=== PATIENT | male | born 1940 | race Caucasian/White ===

== ENCOUNTER 2019-04-11 08:27 | Inpatient (IN) ==
[2019-04-11] MEDS ORDERED: SODIUM CHLORIDE 0.9% 1,000 ML IV STA (09:10)
[2019-04-11] MEDS ORDERED: ONDANSETRON 4 MG/2 ML VIAL IV STA (09:10)
[2019-04-11 09:36] LABS: Basophils % 0.2 % (0.0-0.8); Eosinophils # 0.1 10*3/uL (0.0-0.87); Eosinophils % 0.5 % (0.00-10.9); Hematocrit 33.8 VOL% (42.0-52.0); Hemoglobin 10.3 GM/DL (14.0-18.0); Immature Granulocytes % 1.6 %; Lymphocytes # 0.3 10*3/uL (1.4-4.0); Lymphocytes % 2.1 % (21.2-54.2); Mean Corpuscular HGB Conc 30.5 GM/DL (32-36); Mean Corpuscular Volume 77.5 FL (87-102); Mean Platelet Volume 9.2 FL (9.6-12.0); Monocytes % 9.1 % (1.7-12.7); NRBC # 0.02 10*3/uL; Neutrophils % 86.5 % (38.7-73.9); Platelet Count 538 T/CUMM (130-400); Red Blood Count 4.36 MC/CUMM (3.8-5.5); Red Cell Distribution Width 17.5 % (9.3-17.3); White Blood Count 12.5 T/CUMM (4-12)
[2019-04-11 10:00] LABS: Alanine Aminotransferase 14 U/L (16-61); Albumin 2.7 G/DL (3.4-5.0); Alkaline Phosphatase 157 U/L (45-117); Aspartate Amino Transferase 15 U/L (0-37); Bilirubin,Total < 0.39 MG/DL (0.2-1.0); Blood Urea Nitrogen 30 MG/DL (7-18); Estimated Glom Filtration Rate 35 ML/MIN; Glucose 129 MG/DL (74-106); Osmolality,Calculated 273.4 MOS/KG (273-304); Total Protein 7.2 G/DL (6.4-8.3)
[2019-04-11 10:08] LABS: Anisocytosis 1+; Hypochromasia 1+; Lymphocytes 1 % (20-55); Microcytosis 1+; Nucleated Red Blood Cells 1 (0-5); Segmented Neutrophils 94 % (50-85); Total Cells Counted 100
[2019-04-11 10:09] LABS: Ovalocytes Slight
[2019-04-11] MEDS ORDERED: HYDROmorphone 2 MG/1 ML VIAL IV STA (10:38)
[2019-04-11 10:52] LABS: Apearance,Urine CLEAR (Clear); Bilirubin,Urine Negative (Negative); Blood, Urine Negative (Negative); Glucose,Urine (UA) Negative (Negative); Ketones,Urine Negative (Negative); Mucus,Urine Occasional /LPF (Occasional); Nitrite,Urine Negative (Negative); Protein,Urine Negative; RBC,Urine 8 /HPF (0-4); Urine Color Yellow (Yellow); Urine Specific Gravity 1.049 (1.001-1.035); Urine Urobilinogen < 2.0 EU/DL (0.2-1.0); WBC,Urine <1 /HPF (0-6)
[2019-04-11] MEDS ORDERED: MORPHINE 4 MG/1 ML VIAL IV PRN (11:13)
[2019-04-11] MEDS ORDERED: SODIUM CHLORIDE 0.9% 1,000 ML IV SCH (11:30)
[2019-04-11] MEDS: SODIUM CHLORIDE 0.9% 1,000 ML IV SCH ×2 (16:23→23:33)
[2019-04-11] MEDS: MORPHINE 4 MG/1 ML VIAL IV PRN (23:28)
[2019-04-12 04:57] LABS: Basophils % 0.5 % (0.0-0.8); Eosinophils # 0.1 10*3/uL (0.0-0.87); Hematocrit 30.9 VOL% (42.0-52.0); Hemoglobin 9.1 GM/DL (14.0-18.0); Immature Granulocytes % 1.1 %; Immature Granulocytes Absolute 0.09 #; Lymphocytes # 0.2 10*3/uL (1.4-4.0); Lymphocytes % 2.9 % (21.2-54.2); Mean Corpuscular HGB Conc 29.4 GM/DL (32-36); Mean Corpuscular Volume 79.8 FL (87-102); Mean Platelet Volume 9.2 FL (9.6-12.0); Monocytes % 10.1 % (1.7-12.7); Neutrophils % 84.4 % (38.7-73.9); Platelet Count 459 T/CUMM (130-400); Red Blood Count 3.87 MC/CUMM (3.8-5.5); Red Cell Distribution Width 17.8 % (9.3-17.3); White Blood Count 8.3 T/CUMM (4-12)
[2019-04-12 05:23] LABS: Calcium 8.9 MG/DL (8.5-10.1); Osmolality,Calculated 279.5 MOS/KG (273-304)
[2019-04-12 05:25] LABS: Eosinophils 1 % (0-10); Hypochromasia 1+; Lymphocytes 4 % (20-55); Platelet Estimate Adequate; Segmented Neutrophils 87 % (50-85); Total Cells Counted 100
[2019-04-12 05:26] LABS: Microcytosis 1+
[2019-04-12] MEDS: SODIUM CHLORIDE 0.9% 1,000 ML IV SCH ×2 (06:10→10:40)
[2019-04-12] MEDS ORDERED: METOPROLOL TARTRATE 5 MG/5 ML VIAL IV SCH ×2 (09:32→12:00)
[2019-04-12] MEDS ORDERED: POTASSIUM CHLORIDE RIDER 20 MEQ in PREMIX 1 EACH IV PRN (11:30)
[2019-04-12] MEDS: dilTIAZem Drip 125 MG/125 ML PREMIX IV SCH (11:43)
[2019-04-12] MEDS: POTASSIUM CHLORIDE RIDER 10 MEQ in PREMIX 1 EACH IV PRN (11:44)
[2019-04-12] MEDS: MORPHINE 4 MG/1 ML VIAL IV PRN (17:43)
[2019-04-13 04:12] LABS: Basophils # 0.1 10*3/uL (0.0-0.2); Basophils % 0.5 % (0.0-0.8); Eosinophils # 0.2 10*3/uL (0.0-0.87); Eosinophils % 2.5 % (0.00-10.9); Hematocrit 31.4 VOL% (42.0-52.0); Immature Granulocytes % 1.2 %; Immature Granulocytes Absolute 0.11 #; Lymphocytes # 0.2 10*3/uL (1.4-4.0); Lymphocytes % 2.4 % (21.2-54.2); Mean Corpuscular HGB Conc 28.7 GM/DL (32-36); Mean Corpuscular Volume 82.4 FL (87-102); Mean Platelet Volume 9.1 FL (9.6-12.0); Monocytes % 7.3 % (1.7-12.7); Neutrophils % 86.1 % (38.7-73.9); Platelet Count 431 T/CUMM (130-400); Red Blood Count 3.81 MC/CUMM (3.8-5.5); Red Cell Distribution Width 17.6 % (9.3-17.3); White Blood Count 9.3 T/CUMM (4-12)
[2019-04-13] MEDS: MORPHINE 4 MG/1 ML VIAL IV PRN ×2 (04:40→21:00)
[2019-04-13 04:42] LABS: Eosinophils 4 % (0-10); Hypochromasia 1+; Lymphocytes 1 % (20-55); Microcytosis 1+; Ovalocytes Slight; Platelet Estimate Adequate; Segmented Neutrophils 90 % (50-85); Total Cells Counted 100
[2019-04-13 04:49] LABS: Calcium 8.4 MG/DL (8.5-10.1); Osmolality,Calculated 280.5 MOS/KG (273-304)
[2019-04-13] MEDS: SODIUM CHLORIDE 0.9% 1,000 ML IV SCH ×3 (10:19→21:00)
[2019-04-13] MEDS: ACETAMINOPHEN 325 MG TABLET PO PRN (10:22)
[2019-04-13] MEDS ORDERED: DILTIAZEM 60 MG TABLET PO SCH (11:21)
[2019-04-13] MEDS ORDERED: DIGOXIN 0.125 MG TABLET PO SCH (11:30)
[2019-04-13] MEDS: DILTIAZEM 60 MG TABLET PO SCH ×3 (11:44→21:57)
[2019-04-13] MEDS: dilTIAZem Drip 125 MG/125 ML PREMIX IV SCH (12:02)
[2019-04-13] MEDS: DIGOXIN 0.125 MG TABLET PO SCH (12:02)
[2019-04-13] MEDS: ONDANSETRON 4 MG/2 ML VIAL IV PRN ×2 (16:33→21:00)
[2019-04-14] MEDS: ONDANSETRON 4 MG/2 ML VIAL IV PRN
[2019-04-14] MEDS: MORPHINE 4 MG/1 ML VIAL IV PRN ×2 (03:30)
[2019-04-14] MEDS: PROMETHAZINE INJ 12.5 MG in SODIUM CHLORIDE 0.9% 50 ML IV PRN (03:30)
[2019-04-14 05:51] LABS: Calcium 8.2 MG/DL (8.5-10.1)
[2019-04-14 05:58] LABS: Basophils # 0.1 10*3/uL (0.0-0.2); Basophils % 0.4 % (0.0-0.8); Eosinophils # 0.2 10*3/uL (0.0-0.87); Eosinophils % 2.1 % (0.00-10.9); Hematocrit 33.6 VOL% (42.0-52.0); Hemoglobin 9.9 GM/DL (14.0-18.0); Immature Granulocytes % 1.3 %; Immature Granulocytes Absolute 0.15 #; Lymphocytes # 0.2 10*3/uL (1.4-4.0); Lymphocytes % 1.7 % (21.2-54.2); Mean Corpuscular HGB Conc 29.5 GM/DL (32-36); Mean Corpuscular Volume 79.6 FL (87-102); Mean Platelet Volume 9.3 FL (9.6-12.0); Monocytes % 7.6 % (1.7-12.7); Neutrophils % 86.9 % (38.7-73.9); Platelet Count 469 T/CUMM (130-400); Red Blood Count 4.22 MC/CUMM (3.8-5.5); Red Cell Distribution Width 17.4 % (9.3-17.3); White Blood Count 11.4 T/CUMM (4-12)
[2019-04-14 06:01] LABS: Eosinophils 2 % (0-10); Lymphocytes 3 % (20-55); Platelet Estimate Increased; Segmented Neutrophils 91 % (50-85); Total Cells Counted 100
[2019-04-14] MEDS: ASPIRIN CHEW 81 MG TABLET PO SCH (11:19)
[2019-04-14] MEDS: DILTIAZEM 60 MG TABLET PO SCH ×3 (11:19→21:36)
[2019-04-14] MEDS: DIGOXIN 0.125 MG TABLET PO SCH (14:09)
[2019-04-14] MEDS: POTASSIUM CHLORIDE RIDER 10 MEQ in PREMIX 1 EACH IV PRN (14:10)
[2019-04-14] MEDS: SODIUM CHLORIDE 0.9% 1,000 ML IV SCH (16:38)
[2019-04-14] MEDS: AZITHROMYCIN INJ 250 MG in SODIUM CHLORIDE 0.9% 250 ML IV SCH (21:37)
[2019-04-14] MEDS: ACETAMINOPHEN 325 MG TABLET PO PRN (23:21)
[2019-04-15] MEDS: SODIUM CHLORIDE 0.9% 1,000 ML IV SCH ×3 (03:37→20:14)
[2019-04-15 05:59] LABS: Basophils % 0.4 % (0.0-0.8); Eosinophils # 0.2 10*3/uL (0.0-0.87); Eosinophils % 1.6 % (0.00-10.9); Hematocrit 31.5 VOL% (42.0-52.0); Hemoglobin 9.4 GM/DL (14.0-18.0); Immature Granulocytes % 1.3 %; Immature Granulocytes Absolute 0.14 #; Lymphocytes # 0.3 10*3/uL (1.4-4.0); Lymphocytes % 2.4 % (21.2-54.2); Mean Corpuscular HGB Conc 29.8 GM/DL (32-36); Mean Corpuscular Volume 78.2 FL (87-102); Mean Platelet Volume 9.5 FL (9.6-12.0); Monocytes % 8.1 % (1.7-12.7); Neutrophils % 86.2 % (38.7-73.9); Platelet Count 459 T/CUMM (130-400); Red Blood Count 4.03 MC/CUMM (3.8-5.5); Red Cell Distribution Width 17.7 % (9.3-17.3); White Blood Count 10.9 T/CUMM (4-12)
[2019-04-15 06:40] LABS: Calcium 8.3 MG/DL (8.5-10.1); Osmolality,Calculated 280.8 MOS/KG (273-304)
[2019-04-15 06:44] LABS: Hypochromasia 1+; Lymphocytes 3 % (20-55); Segmented Neutrophils 92 % (50-85); Total Cells Counted 100
[2019-04-15 06:45] LABS: Microcytosis 1+; Platelet Estimate Increased
[2019-04-15] MEDS: ONDANSETRON 4 MG/2 ML VIAL IV PRN ×2 (06:48→15:01)
[2019-04-15] MEDS: DILTIAZEM 60 MG TABLET PO SCH ×3 (08:49→22:44)
[2019-04-15] MEDS: ACETAMINOPHEN 325 MG TABLET PO PRN (08:50)
[2019-04-15] MEDS: ASPIRIN CHEW 81 MG TABLET PO SCH (08:50)
[2019-04-15] MEDS: PROMETHAZINE INJ 12.5 MG in SODIUM CHLORIDE 0.9% 50 ML IV PRN ×2 (08:51→20:13)
[2019-04-15] MEDS: DIGOXIN 0.125 MG TABLET PO SCH (12:56)
[2019-04-15] MEDS: PROCHLORPERAZINE 10 MG TABLET PO PRN ×2 (12:56→21:19)
[2019-04-15] MEDS ORDERED: ceFAZolin 1,000 MG in SYRINGE 1 EACH IV ONE (14:47)
[2019-04-15] MEDS: AZITHROMYCIN INJ 250 MG in SODIUM CHLORIDE 0.9% 250 ML IV SCH (21:19)
[2019-04-16] MEDS: PROMETHAZINE INJ 12.5 MG in SODIUM CHLORIDE 0.9% 50 ML IV PRN (01:29)
[2019-04-16] MEDS: PROCHLORPERAZINE 10 MG TABLET PO PRN (02:54)
[2019-04-16 07:13] LABS: Basophils % 0.2 % (0.0-0.8); Hematocrit 30.3 VOL% (42.0-52.0); Hemoglobin 9.3 GM/DL (14.0-18.0); Immature Granulocytes Absolute 0.13 #; Lymphocytes # 0.2 10*3/uL (1.4-4.0); Lymphocytes % 1.3 % (21.2-54.2); Mean Corpuscular HGB Conc 30.7 GM/DL (32-36); Mean Corpuscular Volume 77.1 FL (87-102); Mean Platelet Volume 9.7 FL (9.6-12.0); Monocytes % 5.2 % (1.7-12.7); Neutrophils % 92.3 % (38.7-73.9); Platelet Count 471 T/CUMM (130-400); Red Blood Count 3.93 MC/CUMM (3.8-5.5); Red Cell Distribution Width 17.4 % (9.3-17.3); White Blood Count 13.4 T/CUMM (4-12)
[2019-04-16 07:40] LABS: Hypochromasia 2+; Lymphocytes 3 % (20-55); Microcytosis 1+; Platelet Estimate Increased; Segmented Neutrophils 94 % (50-85); Total Cells Counted 100
[2019-04-16 07:41] LABS: Calcium 8.3 MG/DL (8.5-10.1); Osmolality,Calculated 276.1 MOS/KG (273-304)
[2019-04-16] MEDS ORDERED: ceFAZolin 1,000 MG in SYRINGE 1 EACH IV ONE (08:30)
[2019-04-16] MEDS: DILTIAZEM 60 MG TABLET PO SCH ×3 (08:30→21:00)
[2019-04-16] MEDS: ASPIRIN CHEW 81 MG TABLET PO SCH (08:31)
[2019-04-16] MEDS ORDERED: LIDOCAINE 2% 5 ML VIAL ONE (08:43)
[2019-04-16] MEDS ORDERED: propofoL 200 MG/20 ML VIAL IV ONE (08:43)
[2019-04-16] MEDS ORDERED: ETOMIDATE 40 MG/20 ML VIAL IV ONE (08:44)
[2019-04-16] MEDS ORDERED: MIDAZOLAM 2 MG/2 ML VIAL ONE (08:44)
[2019-04-16 08:53] LABS: INR 1.1; PT Patient Result 12.2 SECS (9.6-12.2)
[2019-04-16] MEDS ORDERED: flumazeniL 0.5 MG/5 ML VIAL IV ONE (09:45)
[2019-04-16] MEDS ORDERED: ALBUTEROL/IPRATROPIUM 3 ML NEB RESP TX ONE (10:01)
[2019-04-16] MEDS ORDERED: SUCCINYLCHOLINE 200 MG/10 ML VIAL ONE (10:02)
[2019-04-16] MEDS: ALBUTEROL/IPRATROPIUM 3 ML NEB RESP TX SCH ×4 (11:20→23:38)
[2019-04-16] MEDS ORDERED: FUROSEMIDE 40 MG/4 ML VIAL IM ONE (11:29)
[2019-04-16] MEDS ORDERED: methylPREDNISolone SOD SUC 125 MG/2 ML VIAL IV ONE (11:31)
[2019-04-16] MEDS ORDERED: FUROSEMIDE 40 MG/4 ML VIAL IV ONE (11:34)
[2019-04-16] MEDS ORDERED: FUROSEMIDE 40 MG/4 ML VIAL ONE (11:36)
[2019-04-16] MEDS ORDERED: ALBUTEROL NEB SOLN 5 MG/ML 20 ML/BOTTLE CONT NEB ONE (11:50)
[2019-04-16] MEDS ORDERED: ALBUTEROL 2.5 MG/3 ML NEB RESP TX ONE (11:51)
[2019-04-16] MEDS: SODIUM CHLORIDE 0.9% 1,000 ML IV SCH ×2 (12:01→17:36)
[2019-04-16] MEDS: PIPERACILLIN/TAZOBACTAM 3,375 MG in SODIUM CHLORIDE 0.9% 100 ML IV SCH ×2 (12:02→19:39)
[2019-04-16 12:31] LABS: ABG Base Excess -2.6 MMOL/L (-2.5-2.5); ABG HCO3 22.8 MMOL/L (20-26); ABG Oxygen Saturation 86.3 % (95-100); ABG PCO2 41.7 MM HG (35-48); ABG PH 7.355 (7.35-7.45); ABG PO2 58.1 MM HG (80-95); Allen Test Positive; Pt O2 Delivery Device Other
[2019-04-16] MEDS: PANTOPRAZOLE 40 MG VIAL IV SCH ×3 (12:46→20:13)
[2019-04-16] MEDS: DIGOXIN 0.125 MG TABLET PO SCH (12:47)
[2019-04-16] MEDS: POTASSIUM CHLORIDE RIDER 10 MEQ in PREMIX 1 EACH IV PRN ×2 (17:20→18:17)
[2019-04-16] MEDS: ACETAMINOPHEN 325 MG TABLET PO PRN ×2 (18:04→21:36)
[2019-04-16] MEDS: methylPREDNISolone SOD SUC 40 MG/1 ML VIAL IV SCH (19:40)
[2019-04-16 20:59] LABS: ABG Base Excess -0.6 MMOL/L (-2.5-2.5); ABG HCO3 23.9 MMOL/L (20-26); ABG Oxygen Saturation 95.1 % (95-100); ABG PH 7.422 (7.35-7.45); ABG PO2 75.3 MM HG (80-95); ABG TCO2 21.5 MMOL/L (23-27); Allen Test Positive; Pt O2 Delivery Device Other
[2019-04-17] MEDS: AZITHROMYCIN INJ 250 MG in SODIUM CHLORIDE 0.9% 250 ML IV SCH (00:23)
[2019-04-17] MEDS: POTASSIUM CHLORIDE RIDER 10 MEQ in PREMIX 1 EACH IV PRN (03:25)
[2019-04-17] MEDS: ALBUTEROL/IPRATROPIUM 3 ML NEB RESP TX SCH ×6 (03:38→23:26)
[2019-04-17 04:17] LABS: Basophils % 0.1 % (0.0-0.8); Hematocrit 30.1 VOL% (42.0-52.0); Hemoglobin 8.8 GM/DL (14.0-18.0); Immature Granulocytes % 0.6 %; Immature Granulocytes Absolute 0.12 #; Lymphocytes # 0.1 10*3/uL (1.4-4.0); Lymphocytes % 0.3 % (21.2-54.2); Mean Corpuscular HGB Conc 29.2 GM/DL (32-36); Mean Corpuscular Volume 78.8 FL (87-102); Mean Platelet Volume 9.8 FL (9.6-12.0); Monocytes % 1.5 % (1.7-12.7); Neutrophils % 97.5 % (38.7-73.9); Platelet Count 427 T/CUMM (130-400); Red Blood Count 3.82 MC/CUMM (3.8-5.5); Red Cell Distribution Width 17.6 % (9.3-17.3); White Blood Count 19.7 T/CUMM (4-12)
[2019-04-17 04:39] LABS: Lymphocytes 1 % (20-55); Platelet Estimate Adequate; Segmented Neutrophils 97 % (50-85); Total Cells Counted 100
[2019-04-17 04:40] LABS: Hypochromasia 1+; Microcytosis 1+; Ovalocytes Slight
[2019-04-17] MEDS: methylPREDNISolone SOD SUC 40 MG/1 ML VIAL IV SCH ×2 (04:45→17:44)
[2019-04-17 04:51] LABS: Calcium 8.5 MG/DL (8.5-10.1)
[2019-04-17] MEDS: PIPERACILLIN/TAZOBACTAM 3,375 MG in SODIUM CHLORIDE 0.9% 100 ML IV SCH ×3 (04:56→20:57)
[2019-04-17] MEDS: SODIUM CHLORIDE 0.9% 1,000 ML IV SCH (06:09)
[2019-04-17] MEDS: DILTIAZEM 60 MG TABLET PO SCH (08:23)
[2019-04-17] MEDS: PANTOPRAZOLE 40 MG VIAL IV SCH ×2 (08:24→20:56)
[2019-04-17] MEDS: ASPIRIN CHEW 81 MG TABLET PO SCH (08:24)
[2019-04-17] MEDS ORDERED: DILTIAZEM 60 MG TABLET PO SCH (09:00)
[2019-04-17] MEDS: ASCORBIC ACID 500 MG TABLET PO SCH ×2 (09:43→20:57)
[2019-04-17] MEDS ORDERED: FUROSEMIDE 40 MG/4 ML VIAL IV SCH (11:00)
[2019-04-17] MEDS ORDERED: dilTIAZem Drip 125 MG/125 ML PREMIX IV SCH (12:00)
[2019-04-17] MEDS: DIGOXIN 0.125 MG TABLET PO SCH (12:49)
[2019-04-17] MEDS: metOLazone 5 MG TABLET PO SCH (13:25)
[2019-04-17] MEDS: ACETAMINOPHEN 325 MG TABLET PO PRN ×2 (13:34→21:28)
[2019-04-17 14:31] LABS: ABG Base Excess -0.1 MMOL/L (-2.5-2.5); ABG HCO3 24.4 MMOL/L (20-26); ABG Oxygen Saturation 98.2 % (95-100); ABG PCO2 36.5 MM HG (35-48); ABG PH 7.426 (7.35-7.45); ABG TCO2 22.1 MMOL/L (23-27); Allen Test Positive; Pt O2 Delivery Device CPAP
[2019-04-17] MEDS ORDERED: LIDOCAINE 2% TOP JELLY 20 ML VIAL INTRAURETH ONE ×2 (17:11→17:30)
[2019-04-17] MEDS ORDERED: MORPHINE 4 MG/1 ML VIAL ONE (17:13)
[2019-04-17] MEDS ORDERED: MIDAZOLAM 2 MG/2 ML VIAL ONE (17:14)
[2019-04-17] MEDS ORDERED: MORPHINE 4 MG/1 ML VIAL IV ONE (17:43)
[2019-04-17] MEDS ORDERED: MIDAZOLAM 2 MG/2 ML VIAL IV ONE (17:44)
[2019-04-17] MEDS: FUROSEMIDE INJ 100 MG in SODIUM CHLORIDE 0.9% 90 ML IV SCH (18:28)
[2019-04-17] MEDS: AZITHROMYCIN INJ 250 MG in SODIUM CHLORIDE 0.9% 150 ML IV SCH (20:57)
[2019-04-18] MEDS: FUROSEMIDE INJ 100 MG in SODIUM CHLORIDE 0.9% 90 ML IV SCH ×2 (00:03→02:31)
[2019-04-18] MEDS: ALBUTEROL/IPRATROPIUM 3 ML NEB RESP TX SCH ×5 (04:25→19:00)
[2019-04-18 04:40] LABS: Basophils % 0.1 % (0.0-0.8); Hematocrit 26.9 VOL% (42.0-52.0); Hemoglobin 8.2 GM/DL (14.0-18.0); Immature Granulocytes % 0.8 %; Immature Granulocytes Absolute 0.11 #; Lymphocytes # 0.1 10*3/uL (1.4-4.0); Lymphocytes % 0.5 % (21.2-54.2); Mean Corpuscular HGB Conc 30.5 GM/DL (32-36); Mean Corpuscular Volume 76.4 FL (87-102); Mean Platelet Volume 10.3 FL (9.6-12.0); Monocytes % 3.3 % (1.7-12.7); Neutrophils % 95.3 % (38.7-73.9); Platelet Count 359 T/CUMM (130-400); Red Blood Count 3.52 MC/CUMM (3.8-5.5); White Blood Count 13.4 T/CUMM (4-12)
[2019-04-18 05:06] LABS: Calcium 8.6 MG/DL (8.5-10.1); Osmolality,Calculated 277.4 MOS/KG (273-304)
[2019-04-18 05:14] LABS: Hypochromasia 1+; Microcytosis 1+; Platelet Estimate Adequate; Segmented Neutrophils 96 % (50-85); Total Cells Counted 100
[2019-04-18] MEDS: POTASSIUM CHLORIDE RIDER 10 MEQ in PREMIX 1 EACH IV PRN ×2 (05:20→08:38)
[2019-04-18] MEDS: PIPERACILLIN/TAZOBACTAM 3,375 MG in SODIUM CHLORIDE 0.9% 100 ML IV SCH ×3 (05:20→23:26)
[2019-04-18] MEDS: methylPREDNISolone SOD SUC 40 MG/1 ML VIAL IV SCH ×2 (05:20→18:12)
[2019-04-18] MEDS: PANTOPRAZOLE 40 MG VIAL IV SCH ×2 (08:22→22:09)
[2019-04-18] MEDS: ACETAMINOPHEN 325 MG TABLET PO PRN ×2 (08:22→12:56)
[2019-04-18] MEDS: metOLazone 5 MG TABLET PO SCH (08:23)
[2019-04-18] MEDS: ASCORBIC ACID 500 MG TABLET PO SCH ×2 (08:23→22:09)
[2019-04-18] MEDS: ASPIRIN CHEW 81 MG TABLET PO SCH (08:23)
[2019-04-18] MEDS ORDERED: DILTIAZEM 60 MG TABLET PO SCH (09:00)
[2019-04-18] MEDS ORDERED: POTASSIUM CHLORIDE 20 MEQ TABLET PO ONE (10:25)
[2019-04-18 10:50] LABS: % Iron Saturation 7.8 % (18-50); Ferritin 114.4 ng/ml (26-388)
[2019-04-18 11:40] LABS: Folate 13.6 NG/ML (5.4-24.0); Vitamin B12 1055 PG/ML (211-911)
[2019-04-18 12:12] LABS: Basophils % 0.1 % (0.0-0.8); Hematocrit 29.6 VOL% (42.0-52.0); Immature Granulocytes % 1.1 %; Immature Granulocytes Absolute 0.25 #; Lymphocytes % 0.2 % (21.2-54.2); Mean Corpuscular HGB Conc 30.4 GM/DL (32-36); Mean Corpuscular Volume 76.5 FL (87-102); Monocytes % 2.8 % (1.7-12.7); NRBC # 0.02 10*3/uL; Neutrophils % 95.8 % (38.7-73.9); Platelet Count 510 T/CUMM (130-400); Red Blood Count 3.87 MC/CUMM (3.8-5.5); Red Cell Distribution Width 17.9 % (9.3-17.3); White Blood Count 22.5 T/CUMM (4-12)
[2019-04-18] MEDS: DIGOXIN 0.125 MG TABLET PO SCH (12:55)
[2019-04-18] MEDS ORDERED: ALPRAZolam 0.25 MG TABLET PO PRN (15:46)
[2019-04-18 15:56] LABS: Anisocytosis 1+; Microcytosis 1+; Segmented Neutrophils 98 % (50-85); Total Cells Counted 100
[2019-04-18 15:57] LABS: Hypochromasia Slight; Platelet Estimate Increased
[2019-04-18] MEDS: DILTIAZEM 60 MG TABLET PO SCH ×2 (16:47→22:09)
[2019-04-18] MEDS: FUROSEMIDE 40 MG/4 ML VIAL IV SCH ×2 (18:12→23:32)
[2019-04-18 21:06] LABS: Sedimentation Rate-Westergren 80 MM/HR (0-20)
[2019-04-18] MEDS: ALPRAZolam 0.25 MG TABLET PO PRN (22:09)
[2019-04-18] MEDS: AZITHROMYCIN INJ 250 MG in SODIUM CHLORIDE 0.9% 150 ML IV SCH (22:10)
[2019-04-19] MEDS: ALBUTEROL/IPRATROPIUM 3 ML NEB RESP TX SCH ×7 (00:43→23:57)
[2019-04-19] MEDS: ACETAMINOPHEN 325 MG TABLET PO PRN ×2 (02:49→16:25)
[2019-04-19] MEDS: methylPREDNISolone SOD SUC 40 MG/1 ML VIAL IV SCH ×2 (04:44→16:19)
[2019-04-19 05:20] LABS: Hematocrit 25.6 VOL% (42.0-52.0); Immature Granulocytes % 0.6 %; Immature Granulocytes Absolute 0.06 #; Lymphocytes # 0.1 10*3/uL (1.4-4.0); Lymphocytes % 0.5 % (21.2-54.2); Mean Corpuscular HGB Conc 31.3 GM/DL (32-36); Mean Corpuscular Volume 75.5 FL (87-102); Mean Platelet Volume 10.4 FL (9.6-12.0); Monocytes % 3.5 % (1.7-12.7); NRBC # 0.02 10*3/uL; Neutrophils % 95.4 % (38.7-73.9); Platelet Count 338 T/CUMM (130-400); Red Blood Count 3.39 MC/CUMM (3.8-5.5); Red Cell Distribution Width 17.8 % (9.3-17.3); White Blood Count 10.2 T/CUMM (4-12)
[2019-04-19 05:34] LABS: Calcium 8.4 MG/DL (8.5-10.1); Osmolality,Calculated 281.4 MOS/KG (273-304)
[2019-04-19 06:29] LABS: Anisocytosis 1+; Hypochromasia 1+; Lymphocytes 2 % (20-55); Microcytosis 1+; Segmented Neutrophils 95 % (50-85); Total Cells Counted 100
[2019-04-19 06:30] LABS: Platelet Estimate Normal
[2019-04-19] MEDS: PIPERACILLIN/TAZOBACTAM 3,375 MG in SODIUM CHLORIDE 0.9% 100 ML IV SCH ×2 (09:53→16:18)
[2019-04-19] MEDS: DILTIAZEM 60 MG TABLET PO SCH ×3 (09:54→21:59)
[2019-04-19] MEDS: ASCORBIC ACID 500 MG TABLET PO SCH ×2 (09:55→21:58)
[2019-04-19] MEDS: POTASSIUM CHLORIDE 20 MEQ/15 ML UDCUP PER TUBE SCH ×3 (09:55→21:59)
[2019-04-19] MEDS: metOLazone 5 MG TABLET PO SCH (09:56)
[2019-04-19] MEDS: PANTOPRAZOLE 40 MG TABLET PO SCH ×2 (09:56→18:28)
[2019-04-19] MEDS: FUROSEMIDE 40 MG/4 ML VIAL IV SCH ×2 (09:57→16:18)
[2019-04-19] MEDS: DIGOXIN 0.125 MG TABLET PO SCH (13:59)
[2019-04-19] MEDS ORDERED: ASPIRIN EC 81 MG TABLET PO SCH (14:30)
[2019-04-19] MEDS ORDERED: POTASSIUM CHLORIDE 20 MEQ TABLET PO SCH (15:00)
[2019-04-19] MEDS: ALPRAZolam 0.25 MG TABLET PO PRN (22:21)
[2019-04-19] MEDS: AZITHROMYCIN INJ 250 MG in SODIUM CHLORIDE 0.9% 150 ML IV SCH (22:22)
[2019-04-20] MEDS: FUROSEMIDE 40 MG/4 ML VIAL IV SCH ×2 (00:44→08:36)
[2019-04-20] MEDS: PIPERACILLIN/TAZOBACTAM 3,375 MG in SODIUM CHLORIDE 0.9% 100 ML IV SCH ×3 (00:46→15:51)
[2019-04-20] MEDS: ALBUTEROL/IPRATROPIUM 3 ML NEB RESP TX SCH ×6 (02:45→22:43)
[2019-04-20 03:16] LABS: Basophils % 0.1 % (0.0-0.8); Hematocrit 28.8 VOL% (42.0-52.0); Hemoglobin 8.6 GM/DL (14.0-18.0); Immature Granulocytes % 1.1 %; Immature Granulocytes Absolute 0.13 #; Lymphocytes % 0.2 % (21.2-54.2); Mean Corpuscular HGB Conc 29.9 GM/DL (32-36); Mean Platelet Volume 9.9 FL (9.6-12.0); Monocytes % 3.7 % (1.7-12.7); NRBC # 0.03 10*3/uL; Neutrophils % 94.9 % (38.7-73.9); Platelet Count 394 T/CUMM (130-400); Red Blood Count 3.74 MC/CUMM (3.8-5.5); Red Cell Distribution Width 17.5 % (9.3-17.3)
[2019-04-20 03:35] LABS: Calcium 8.9 MG/DL (8.5-10.1); Osmolality,Calculated 278.8 MOS/KG (273-304)
[2019-04-20 03:52] LABS: Hypochromasia 1+; Lymphocytes 1 % (20-55); Nucleated Red Blood Cells 1 (0-5); Platelet Estimate Adequate; Segmented Neutrophils 95 % (50-85); Total Cells Counted 100
[2019-04-20 03:53] LABS: Microcytosis 1+
[2019-04-20] MEDS: methylPREDNISolone SOD SUC 40 MG/1 ML VIAL IV SCH ×3 (05:45→16:31)
[2019-04-20] MEDS: metOLazone 5 MG TABLET PO SCH (08:36)
[2019-04-20] MEDS: POTASSIUM CHLORIDE 20 MEQ/15 ML UDCUP PER TUBE SCH ×3 (08:36→21:11)
[2019-04-20] MEDS: DILTIAZEM 60 MG TABLET PO SCH ×3 (08:37→21:12)
[2019-04-20] MEDS: ASCORBIC ACID 500 MG TABLET PO SCH ×2 (08:37→21:12)
[2019-04-20] MEDS: PANTOPRAZOLE 40 MG TABLET PO SCH ×2 (08:37→18:18)
[2019-04-20] MEDS: TRIAMCINOLONE 0.1% CREAM 15 GM TUBE TOP SCH ×2 (10:27→21:13)
[2019-04-20] MEDS: AZITHROMYCIN 250 MG TABLET PO SCH (10:27)
[2019-04-20] MEDS: DIGOXIN 0.125 MG TABLET PO SCH (13:29)
[2019-04-20] MEDS: ASPIRIN EC 81 MG TABLET PO SCH (15:21)
[2019-04-21] MEDS: PIPERACILLIN/TAZOBACTAM 3,375 MG in SODIUM CHLORIDE 0.9% 100 ML IV SCH ×3 (00:35→17:17)
[2019-04-21] MEDS: ALBUTEROL/IPRATROPIUM 3 ML NEB RESP TX SCH ×6 (02:52→23:47)
[2019-04-21] MEDS: methylPREDNISolone SOD SUC 40 MG/1 ML VIAL IV SCH ×2 (04:36→17:19)
[2019-04-21] MEDS: PANTOPRAZOLE 40 MG TABLET PO SCH ×2 (06:35→18:06)
[2019-04-21 06:42] LABS: Basophils % 0.1 % (0.0-0.8); Hematocrit 29.3 VOL% (42.0-52.0); Hemoglobin 8.8 GM/DL (14.0-18.0); Immature Granulocytes % 1.3 %; Immature Granulocytes Absolute 0.21 #; Lymphocytes # 0.1 10*3/uL (1.4-4.0); Lymphocytes % 0.3 % (21.2-54.2); Mean Corpuscular Volume 75.1 FL (87-102); Mean Platelet Volume 10.1 FL (9.6-12.0); Monocytes % 4.2 % (1.7-12.7); NRBC # 0.02 10*3/uL; Neutrophils % 94.1 % (38.7-73.9); Platelet Count 471 T/CUMM (130-400); Red Cell Distribution Width 17.7 % (9.3-17.3); White Blood Count 16.2 T/CUMM (4-12)
[2019-04-21 07:08] LABS: Calcium 8.7 MG/DL (8.5-10.1); Osmolality,Calculated 282.8 MOS/KG (273-304)
[2019-04-21 07:16] LABS: Hypochromasia Slight; Lymphocytes 2 % (20-55); Platelet Estimate Normal; Poikilocytosis 1+; Segmented Neutrophils 91 % (50-85); Total Cells Counted 100
[2019-04-21 07:17] LABS: Anisocytosis 2+
[2019-04-21] MEDS: ASCORBIC ACID 500 MG TABLET PO SCH ×2 (09:54→21:26)
[2019-04-21] MEDS: metOLazone 5 MG TABLET PO SCH (09:54)
[2019-04-21] MEDS: FUROSEMIDE 40 MG TABLET PO SCH (09:55)
[2019-04-21] MEDS: DILTIAZEM 60 MG TABLET PO SCH ×3 (09:55→21:26)
[2019-04-21] MEDS: AZITHROMYCIN 250 MG TABLET PO SCH (09:56)
[2019-04-21] MEDS: POTASSIUM CHLORIDE RIDER 10 MEQ in PREMIX 1 EACH IV PRN ×3 (09:57→17:15)
[2019-04-21] MEDS: TRIAMCINOLONE 0.1% CREAM 15 GM TUBE TOP SCH ×2 (09:57→21:40)
[2019-04-21] MEDS: ASPIRIN EC 81 MG TABLET PO SCH (09:58)
[2019-04-21] MEDS: DIGOXIN 0.125 MG TABLET PO SCH (13:48)
[2019-04-21] MEDS: ONDANSETRON 4 MG/2 ML VIAL IV PRN (17:29)
[2019-04-21] MEDS: ALPRAZolam 0.25 MG TABLET PO PRN ×2 (17:29→22:49)
[2019-04-21] MEDS: PROCHLORPERAZINE 10 MG TABLET PO PRN (21:33)
[2019-04-22] MEDS: PIPERACILLIN/TAZOBACTAM 3,375 MG in SODIUM CHLORIDE 0.9% 100 ML IV SCH ×4 (02:12→16:39)
[2019-04-22] MEDS: ALBUTEROL/IPRATROPIUM 3 ML NEB RESP TX SCH ×5 (03:33→20:18)
[2019-04-22] MEDS: methylPREDNISolone SOD SUC 40 MG/1 ML VIAL IV SCH ×2 (05:26→16:38)
[2019-04-22] MEDS: PANTOPRAZOLE 40 MG TABLET PO SCH ×2 (06:07→19:30)
[2019-04-22 09:25] LABS: Basophils % 0.1 % (0.0-0.8); Hematocrit 26.7 VOL% (42.0-52.0); Hemoglobin 7.9 GM/DL (14.0-18.0); Immature Granulocytes % 1.4 %; Immature Granulocytes Absolute 0.27 #; Lymphocytes # 0.1 10*3/uL (1.4-4.0); Lymphocytes % 0.4 % (21.2-54.2); Mean Corpuscular HGB Conc 29.6 GM/DL (32-36); Mean Corpuscular Volume 76.9 FL (87-102); Mean Platelet Volume 10.1 FL (9.6-12.0); Monocytes % 2.7 % (1.7-12.7); Neutrophils % 95.4 % (38.7-73.9); Platelet Count 485 T/CUMM (130-400); Red Blood Count 3.47 MC/CUMM (3.8-5.5); Red Cell Distribution Width 17.4 % (9.3-17.3); White Blood Count 19.6 T/CUMM (4-12)
[2019-04-22 09:28] LABS: Calcium 8.4 MG/DL (8.5-10.1); Osmolality,Calculated 288.5 MOS/KG (273-304)
[2019-04-22] MEDS: AZITHROMYCIN 250 MG TABLET PO SCH ×2 (10:15→10:19)
[2019-04-22] MEDS: ASCORBIC ACID 500 MG TABLET PO SCH ×3 (10:15→21:57)
[2019-04-22] MEDS: EPLERENONE 25 MG TABLET PO SCH ×2 (10:15→10:20)
[2019-04-22] MEDS: ASPIRIN EC 81 MG TABLET PO SCH ×2 (10:15→10:19)
[2019-04-22] MEDS: POTASSIUM CHLORIDE RIDER 10 MEQ in PREMIX 1 EACH IV PRN ×4 (10:17→14:56)
[2019-04-22] MEDS: ALPRAZolam 0.25 MG TABLET PO PRN ×2 (10:19→21:59)
[2019-04-22] MEDS: DILTIAZEM 60 MG TABLET PO SCH ×4 (10:19→21:56)
[2019-04-22] MEDS: FUROSEMIDE 40 MG TABLET PO SCH ×2 (10:20→11:12)
[2019-04-22 11:34] LABS: Hypochromasia 3+; Microcytosis 2+; Segmented Neutrophils 95 % (50-85); Total Cells Counted 100
[2019-04-22 11:35] LABS: Platelet Estimate Increased
[2019-04-22] MEDS: DIGOXIN 0.125 MG TABLET PO SCH (14:56)
[2019-04-23] MEDS: ALBUTEROL/IPRATROPIUM 3 ML NEB RESP TX SCH ×6 (00:19→20:06)
[2019-04-23] MEDS: PIPERACILLIN/TAZOBACTAM 3,375 MG in SODIUM CHLORIDE 0.9% 100 ML IV SCH ×3 (00:22→17:18)
[2019-04-23 05:34] LABS: Basophils % 0.1 % (0.0-0.8); Hematocrit 24.6 VOL% (42.0-52.0); Hemoglobin 7.3 GM/DL (14.0-18.0); Immature Granulocytes % 1.6 %; Immature Granulocytes Absolute 0.28 #; Lymphocytes # 0.1 10*3/uL (1.4-4.0); Lymphocytes % 0.3 % (21.2-54.2); Mean Corpuscular HGB Conc 29.7 GM/DL (32-36); Mean Corpuscular Volume 76.9 FL (87-102); Mean Platelet Volume 10.5 FL (9.6-12.0); NRBC # 0.02 10*3/uL; Platelet Count 445 T/CUMM (130-400); Red Cell Distribution Width 17.7 % (9.3-17.3); White Blood Count 17.9 T/CUMM (4-12)
[2019-04-23] MEDS: methylPREDNISolone SOD SUC 40 MG/1 ML VIAL IV SCH ×2 (05:47→17:18)
[2019-04-23 05:57] LABS: Calcium 8.6 MG/DL (8.5-10.1); Osmolality,Calculated 285.5 MOS/KG (273-304)
[2019-04-23] MEDS: PANTOPRAZOLE 40 MG TABLET PO SCH ×2 (06:01→18:05)
[2019-04-23 06:45] LABS: Lymphocytes 1 % (20-55); Segmented Neutrophils 95 % (50-85); Total Cells Counted 100
[2019-04-23 06:47] LABS: Anisocytosis 1+; Hypochromasia 1+
[2019-04-23 06:48] LABS: Acanthocytes Few; Ovalocytes 1+; Platelet Estimate Increased
[2019-04-23] MEDS: DILTIAZEM 60 MG TABLET PO SCH ×3 (08:48→21:47)
[2019-04-23] MEDS: EPLERENONE 25 MG TABLET PO SCH (08:48)
[2019-04-23] MEDS: FUROSEMIDE 40 MG TABLET PO SCH (08:48)
[2019-04-23] MEDS: ASPIRIN EC 81 MG TABLET PO SCH (08:48)
[2019-04-23] MEDS: AZITHROMYCIN 250 MG TABLET PO SCH (08:49)
[2019-04-23] MEDS: POTASSIUM CHLORIDE RIDER 10 MEQ in PREMIX 1 EACH IV PRN (08:50)
[2019-04-23] MEDS: POTASSIUM CHLORIDE 20 MEQ TABLET PO SCH ×2 (09:12→12:29)
[2019-04-23] MEDS: ASCORBIC ACID 500 MG TABLET PO SCH ×2 (10:25→21:47)
[2019-04-23] MEDS: DIGOXIN 0.125 MG TABLET PO SCH (12:30)
[2019-04-23] MEDS: ONDANSETRON 4 MG/2 ML VIAL IV PRN (18:22)
[2019-04-23] MEDS: FLUOCINONIDE E 0.05% CREAM 15 GM TUBE TOP SCH (21:47)
[2019-04-23] MEDS: ALPRAZolam 0.25 MG TABLET PO PRN (21:47)
[2019-04-24] MEDS: ALBUTEROL/IPRATROPIUM 3 ML NEB RESP TX SCH ×7 (00:25→22:47)
[2019-04-24 06:08] LABS: Basophils % 0.1 % (0.0-0.8); Hematocrit 23.5 VOL% (42.0-52.0); Hemoglobin 7.1 GM/DL (14.0-18.0); Immature Granulocytes % 3.2 %; Immature Granulocytes Absolute 0.61 #; Lymphocytes # 0.1 10*3/uL (1.4-4.0); Lymphocytes % 0.3 % (21.2-54.2); Mean Corpuscular HGB Conc 30.2 GM/DL (32-36); Mean Corpuscular Volume 76.8 FL (87-102); Mean Platelet Volume 10.4 FL (9.6-12.0); Monocytes % 4.1 % (1.7-12.7); NRBC # 0.02 10*3/uL; Neutrophils % 92.3 % (38.7-73.9); Platelet Count 482 T/CUMM (130-400); Red Blood Count 3.06 MC/CUMM (3.8-5.5); Red Cell Distribution Width 17.8 % (9.3-17.3); White Blood Count 19.3 T/CUMM (4-12)
[2019-04-24] MEDS: methylPREDNISolone SOD SUC 40 MG/1 ML VIAL IV SCH ×2 (06:16→16:22)
[2019-04-24] MEDS: PANTOPRAZOLE 40 MG TABLET PO SCH (06:16)
[2019-04-24 06:29] LABS: Hypochromasia 2+; Lymphocytes 2 % (20-55); Microcytosis 2+; Nucleated Red Blood Cells 1 (0-5); Ovalocytes Slight; Platelet Estimate Increased; Segmented Neutrophils 96 % (50-85); Total Cells Counted 100
[2019-04-24 06:34] LABS: Calcium 8.6 MG/DL (8.5-10.1); Osmolality,Calculated 282.9 MOS/KG (273-304)
[2019-04-24] MEDS ORDERED: FUROSEMIDE 20 MG/2 ML VIAL IV PRN (08:21)
[2019-04-24] MEDS ORDERED: SODIUM CHLORIDE 0.9% 1,000 ML IV PRN (08:21)
[2019-04-24] MEDS: FLUOCINONIDE E 0.05% CREAM 15 GM TUBE TOP SCH ×4 (08:50→21:53)
[2019-04-24] MEDS: ASCORBIC ACID 500 MG TABLET PO SCH ×2 (08:50→21:45)
[2019-04-24] MEDS: PANTOPRAZOLE 40 MG VIAL IV SCH ×2 (08:50→21:45)
[2019-04-24] MEDS: FUROSEMIDE 40 MG TABLET PO SCH (08:50)
[2019-04-24] MEDS: EPLERENONE 25 MG TABLET PO SCH (08:50)
[2019-04-24] MEDS: ASPIRIN EC 81 MG TABLET PO SCH (08:50)
[2019-04-24] MEDS: DILTIAZEM 60 MG TABLET PO SCH ×3 (08:50→21:45)
[2019-04-24] MEDS: AZITHROMYCIN 250 MG TABLET PO SCH (08:51)
[2019-04-24] MEDS: DIGOXIN 0.125 MG TABLET PO SCH (14:19)
[2019-04-24] MEDS ORDERED: FUROSEMIDE 20 MG/2 ML VIAL IV ONE (18:17)
[2019-04-25] MEDS: ALBUTEROL/IPRATROPIUM 3 ML NEB RESP TX SCH ×5 (02:00→19:18)
[2019-04-25] MEDS: ACETAMINOPHEN 325 MG TABLET PO PRN (02:37)
[2019-04-25] MEDS: ALPRAZolam 0.25 MG TABLET PO PRN (02:37)
[2019-04-25] MEDS: ONDANSETRON 4 MG/2 ML VIAL IV PRN (02:50)
[2019-04-25] MEDS: methylPREDNISolone SOD SUC 40 MG/1 ML VIAL IV SCH ×2 (05:08→17:41)
[2019-04-25 05:54] LABS: Basophils # 0.1 10*3/uL (0.0-0.2); Basophils % 0.3 % (0.0-0.8); Hematocrit 34.2 VOL% (42.0-52.0); Lymphocytes # 0.1 10*3/uL (1.4-4.0); Lymphocytes % 0.4 % (21.2-54.2); Mean Corpuscular HGB Conc 31.6 GM/DL (32-36); Mean Corpuscular Volume 79.7 FL (87-102); Mean Platelet Volume 10.2 FL (9.6-12.0); Monocytes % 4.1 % (1.7-12.7); NRBC # 0.04 10*3/uL; Neutrophils % 90.2 % (38.7-73.9); Red Cell Distribution Width 18.6 % (9.3-17.3)
[2019-04-25 05:58] LABS: Calcium 9.2 MG/DL (8.5-10.1); Osmolality,Calculated 285.1 MOS/KG (273-304); White Blood Count 34.3 T/CUMM (4-12)
[2019-04-25 05:59] LABS: Hemoglobin 10.8 GM/DL (14.0-18.0); Platelet Count 644 T/CUMM (130-400); Red Blood Count 4.29 MC/CUMM (3.8-5.5)
[2019-04-25] MEDS: POTASSIUM CHLORIDE RIDER 10 MEQ in PREMIX 1 EACH IV PRN ×4 (06:06→15:14)
[2019-04-25 06:12] LABS: Hypochromasia 1+; Lymphocytes 2 % (20-55); Microcytosis 1+; Ovalocytes Slight; Platelet Estimate Increased; Segmented Neutrophils 96 % (50-85); Total Cells Counted 100
[2019-04-25 08:57] LABS: Hematocrit 32.5 VOL% (42.0-52.0); Hemoglobin 10.1 GM/DL (14.0-18.0)
[2019-04-25] MEDS: EPLERENONE 25 MG TABLET PO SCH (09:15)
[2019-04-25] MEDS: ASCORBIC ACID 500 MG TABLET PO SCH ×2 (09:16→20:34)
[2019-04-25] MEDS: ASPIRIN EC 81 MG TABLET PO SCH (09:16)
[2019-04-25] MEDS: DILTIAZEM 60 MG TABLET PO SCH ×3 (09:16→20:33)
[2019-04-25] MEDS: PANTOPRAZOLE 40 MG VIAL IV SCH ×2 (09:17→20:34)
[2019-04-25] MEDS: FLUOCINONIDE E 0.05% CREAM 15 GM TUBE TOP SCH ×4 (09:23→20:34)
[2019-04-25] MEDS ORDERED: POTASSIUM CHLORIDE 20 MEQ TABLET PO ONE (10:16)
[2019-04-25] MEDS: METOCLOPRAMIDE 10 MG/2 ML VIAL IV SCH ×2 (12:35→17:40)
[2019-04-25] MEDS: DIGOXIN 0.125 MG TABLET PO SCH (14:07)
[2019-04-26] MEDS: METOCLOPRAMIDE 10 MG/2 ML VIAL IV SCH ×5 (00:12→23:29)
[2019-04-26] MEDS: ALBUTEROL/IPRATROPIUM 3 ML NEB RESP TX SCH ×7 (00:38→23:55)
[2019-04-26 04:17] LABS: Basophils % 0.1 % (0.0-0.8); Hematocrit 28.5 VOL% (42.0-52.0); Hemoglobin 9.1 GM/DL (14.0-18.0); Immature Granulocytes % 2.5 %; Immature Granulocytes Absolute 0.44 #; Lymphocytes # 0.1 10*3/uL (1.4-4.0); Lymphocytes % 0.5 % (21.2-54.2); Mean Corpuscular HGB Conc 31.9 GM/DL (32-36); Mean Corpuscular Volume 78.3 FL (87-102); Monocytes % 3.2 % (1.7-12.7); Neutrophils % 93.7 % (38.7-73.9); Platelet Count 431 T/CUMM (130-400); Red Blood Count 3.64 MC/CUMM (3.8-5.5); White Blood Count 17.6 T/CUMM (4-12)
[2019-04-26 04:45] LABS: Calcium 8.6 MG/DL (8.5-10.1); Osmolality,Calculated 289.5 MOS/KG (273-304)
[2019-04-26 04:48] LABS: Hypochromasia 1+; Lymphocytes 1 % (20-55); Platelet Estimate Adequate; Segmented Neutrophils 96 % (50-85); Total Cells Counted 100
[2019-04-26 04:49] LABS: Microcytosis 1+
[2019-04-26] MEDS: methylPREDNISolone SOD SUC 40 MG/1 ML VIAL IV SCH ×2 (05:28→16:59)
[2019-04-26] MEDS: DEXTROSE 5% NACL 0.45% 1,000 ML IV SCH ×2 (09:12→21:18)
[2019-04-26] MEDS: FLUOCINONIDE E 0.05% CREAM 15 GM TUBE TOP SCH ×4 (09:15→20:22)
[2019-04-26] MEDS: PANTOPRAZOLE 40 MG VIAL IV SCH ×2 (09:31→20:21)
[2019-04-26] MEDS: DILTIAZEM 60 MG TABLET PO SCH ×3 (10:04→20:21)
[2019-04-26] MEDS: ASCORBIC ACID 500 MG TABLET PO SCH ×2 (10:04→20:22)
[2019-04-26] MEDS: EPLERENONE 25 MG TABLET PO SCH (10:04)
[2019-04-26] MEDS: ASPIRIN EC 81 MG TABLET PO SCH (10:05)
[2019-04-26] MEDS: ACETAMINOPHEN 325 MG TABLET PO PRN (20:21)
[2019-04-27] MEDS: ALBUTEROL/IPRATROPIUM 3 ML NEB RESP TX SCH ×4 (03:37→14:37)
[2019-04-27] MEDS: METOCLOPRAMIDE 10 MG/2 ML VIAL IV SCH (05:16)
[2019-04-27] MEDS: methylPREDNISolone SOD SUC 40 MG/1 ML VIAL IV SCH ×2 (05:16→17:40)
[2019-04-27 05:18] LABS: Basophils % 0.1 % (0.0-0.8); Hematocrit 26.6 VOL% (42.0-52.0); Hemoglobin 8.5 GM/DL (14.0-18.0); Immature Granulocytes % 2.7 %; Immature Granulocytes Absolute 0.66 #; Lymphocytes # 0.1 10*3/uL (1.4-4.0); Lymphocytes % 0.2 % (21.2-54.2); Mean Corpuscular Volume 78.7 FL (87-102); Mean Platelet Volume 10.2 FL (9.6-12.0); Monocytes % 3.1 % (1.7-12.7); Neutrophils % 93.9 % (38.7-73.9); Platelet Count 467 T/CUMM (130-400); Red Blood Count 3.38 MC/CUMM (3.8-5.5); Red Cell Distribution Width 19.7 % (9.3-17.3); White Blood Count 24.3 T/CUMM (4-12)
[2019-04-27 05:40] LABS: Calcium 8.6 MG/DL (8.5-10.1); Osmolality,Calculated 284.1 MOS/KG (273-304)
[2019-04-27 05:57] LABS: Hypochromasia 2+; Lymphocytes 1 % (20-55); Microcytosis 1+; Platelet Estimate Increased; Segmented Neutrophils 95 % (50-85); Total Cells Counted 100
[2019-04-27] MEDS: DILTIAZEM 60 MG TABLET PO SCH ×3 (09:11→21:51)
[2019-04-27] MEDS: ASPIRIN EC 81 MG TABLET PO SCH (09:11)
[2019-04-27] MEDS: EPLERENONE 25 MG TABLET PO SCH (09:11)
[2019-04-27] MEDS: PANTOPRAZOLE 40 MG VIAL IV SCH ×2 (09:12→21:50)
[2019-04-27] MEDS: ASCORBIC ACID 500 MG TABLET PO SCH ×2 (09:12→21:51)
[2019-04-27] MEDS: FLUOCINONIDE E 0.05% CREAM 15 GM TUBE TOP SCH ×4 (09:12→21:51)
[2019-04-27] MEDS: DEXTROSE 5% NACL 0.45% 1,000 ML IV SCH (11:57)
[2019-04-27] MEDS: DIGOXIN 0.5 MG/2 ML AMP IV SCH (12:31)
[2019-04-27] MEDS: METOCLOPRAMIDE 10 MG/10 ML UDCUP PO SCH ×3 (12:31→21:50)
[2019-04-27] MEDS: ACETAMINOPHEN 325 MG TABLET PO PRN (16:02)
[2019-04-28] MEDS: ALBUTEROL/IPRATROPIUM 3 ML NEB RESP TX SCH ×7 (00:16→23:55)
[2019-04-28] MEDS: methylPREDNISolone SOD SUC 40 MG/1 ML VIAL IV SCH ×2 (04:56→16:43)
[2019-04-28 05:37] LABS: Basophils # 0.1 10*3/uL (0.0-0.2); Basophils % 0.2 % (0.0-0.8); Hematocrit 28.8 VOL% (42.0-52.0); Hemoglobin 9.2 GM/DL (14.0-18.0); Immature Granulocytes % 2.4 %; Immature Granulocytes Absolute 1.06 #; Lymphocytes # 0.1 10*3/uL (1.4-4.0); Lymphocytes % 0.2 % (21.2-54.2); Mean Corpuscular HGB Conc 31.9 GM/DL (32-36); Mean Corpuscular Volume 79.6 FL (87-102); Mean Platelet Volume 9.9 FL (9.6-12.0); Neutrophils % 94.2 % (38.7-73.9); Platelet Count 494 T/CUMM (130-400); Red Blood Count 3.62 MC/CUMM (3.8-5.5); Red Cell Distribution Width 19.8 % (9.3-17.3)
[2019-04-28 05:41] LABS: White Blood Count 43.5 T/CUMM (4-12)
[2019-04-28 06:23] LABS: Calcium 8.6 MG/DL (8.5-10.1); Osmolality,Calculated 278.2 MOS/KG (273-304)
[2019-04-28 06:27] LABS: Albumin 2.1 G/DL (3.4-5.0); Bilirubin,Total 1.3 MG/DL (0.2-1.0); Calcium 8.6 MG/DL (8.5-10.1); Osmolality,Calculated 276.4 MOS/KG (273-304); Total Protein 5.3 G/DL (6.4-8.3)
[2019-04-28 07:47] LABS: Lymphocytes 1 % (20-55); Platelet Estimate Increased; Segmented Neutrophils 97 % (50-85); Total Cells Counted 100
[2019-04-28] MEDS: DILTIAZEM 60 MG TABLET PO SCH ×3 (09:44→21:56)
[2019-04-28] MEDS: ASPIRIN EC 81 MG TABLET PO SCH (09:45)
[2019-04-28] MEDS: EPLERENONE 25 MG TABLET PO SCH (09:45)
[2019-04-28] MEDS: PANTOPRAZOLE 40 MG VIAL IV SCH ×2 (09:47→21:54)
[2019-04-28] MEDS: FLUOCINONIDE E 0.05% CREAM 15 GM TUBE TOP SCH ×4 (09:47→22:12)
[2019-04-28] MEDS: ASCORBIC ACID 500 MG TABLET PO SCH ×2 (09:48→21:56)
[2019-04-28] MEDS: MEROPENEM 500 MG in SODIUM CHLORIDE 0.9% 100 ML IV SCH ×2 (11:56→16:05)
[2019-04-28] MEDS: METOCLOPRAMIDE 10 MG/2 ML VIAL IV SCH ×2 (12:19→18:07)
[2019-04-28] MEDS: LEVOFLOXACIN INJ 750 MG in PREMIX 1 EACH IV SCH (12:25)
[2019-04-28] MEDS: METOCLOPRAMIDE 10 MG/10 ML UDCUP PO SCH (12:29)
[2019-04-28] MEDS: VANCOMYCIN INJ 1,000 MG in SODIUM CHLORIDE 0.9% 250 ML IV SCH (14:14)
[2019-04-28] MEDS: ACETAMINOPHEN 325 MG TABLET PO PRN ×2 (14:25→21:56)
[2019-04-29] MEDS: METOCLOPRAMIDE 10 MG/2 ML VIAL IV SCH ×4 (00:30→17:08)
[2019-04-29] MEDS: MEROPENEM 500 MG in SODIUM CHLORIDE 0.9% 100 ML IV SCH ×4 (00:31→16:45)
[2019-04-29] MEDS: VANCOMYCIN INJ 1,000 MG in SODIUM CHLORIDE 0.9% 250 ML IV SCH ×2 (01:17→13:26)
[2019-04-29] MEDS: ALBUTEROL/IPRATROPIUM 3 ML NEB RESP TX SCH ×6 (02:26→22:34)
[2019-04-29] MEDS: ACETAMINOPHEN 325 MG TABLET PO PRN ×2 (04:02→13:28)
[2019-04-29] MEDS: methylPREDNISolone SOD SUC 40 MG/1 ML VIAL IV SCH ×2 (05:36→17:09)
[2019-04-29 06:12] LABS: Basophils % 0.1 % (0.0-0.8); Hematocrit 25.4 VOL% (42.0-52.0); Hemoglobin 8.1 GM/DL (14.0-18.0); Immature Granulocytes % 1.4 %; Immature Granulocytes Absolute 0.33 #; Lymphocytes # 0.1 10*3/uL (1.4-4.0); Lymphocytes % 0.2 % (21.2-54.2); Mean Corpuscular HGB Conc 31.9 GM/DL (32-36); Mean Corpuscular Volume 78.6 FL (87-102); Monocytes % 2.8 % (1.7-12.7); Neutrophils % 95.5 % (38.7-73.9); Platelet Count 428 T/CUMM (130-400); Red Blood Count 3.23 MC/CUMM (3.8-5.5); Red Cell Distribution Width 20.1 % (9.3-17.3); White Blood Count 23.9 T/CUMM (4-12)
[2019-04-29 06:34] LABS: Hypochromasia 1+; Lymphocytes 1 % (20-55); Ovalocytes Slight; Platelet Estimate Adequate; Segmented Neutrophils 98 % (50-85); Total Cells Counted 100
[2019-04-29 06:48] LABS: Bilirubin,Total 0.6 MG/DL (0.2-1.0); Calcium 8.4 MG/DL (8.5-10.1); Osmolality,Calculated 275.4 MOS/KG (273-304); Total Protein 4.9 G/DL (6.4-8.3)
[2019-04-29] MEDS: ASCORBIC ACID 500 MG TABLET PO SCH ×2 (09:51→21:49)
[2019-04-29] MEDS: EPLERENONE 25 MG TABLET PO SCH (09:51)
[2019-04-29] MEDS: PANTOPRAZOLE 40 MG VIAL IV SCH ×2 (09:52→21:49)
[2019-04-29] MEDS: ASPIRIN EC 81 MG TABLET PO SCH (09:52)
[2019-04-29] MEDS: FLUOCINONIDE E 0.05% CREAM 15 GM TUBE TOP SCH ×4 (09:52→21:51)
[2019-04-29] MEDS: DILTIAZEM 60 MG TABLET PO SCH ×3 (09:52→21:49)
[2019-04-29] MEDS: LEVOFLOXACIN INJ 750 MG in PREMIX 1 EACH IV SCH (11:16)
[2019-04-29] MEDS: DIGOXIN 0.5 MG/2 ML AMP IV SCH (13:26)
[2019-04-29] MEDS: HYDROmorphone 2 MG/1 ML VIAL IV PRN (16:56)
[2019-04-30] MEDS: METOCLOPRAMIDE 10 MG/2 ML VIAL IV SCH ×5 (00:59→23:33)
[2019-04-30] MEDS: HYDROmorphone 2 MG/1 ML VIAL IV PRN ×2 (01:05→13:55)
[2019-04-30] MEDS: MEROPENEM 500 MG in SODIUM CHLORIDE 0.9% 100 ML IV SCH ×5 (01:08→23:35)
[2019-04-30] MEDS: VANCOMYCIN INJ 1,000 MG in SODIUM CHLORIDE 0.9% 250 ML IV SCH ×2 (01:50→15:37)
[2019-04-30] MEDS: ALBUTEROL/IPRATROPIUM 3 ML NEB RESP TX SCH ×5 (03:38→20:44)
[2019-04-30] MEDS: methylPREDNISolone SOD SUC 40 MG/1 ML VIAL IV SCH ×2 (05:22→17:22)
[2019-04-30 06:36] LABS: Basophils % 0.1 % (0.0-0.8); Hematocrit 26.5 VOL% (42.0-52.0); Hemoglobin 8.5 GM/DL (14.0-18.0); Immature Granulocytes % 1.9 %; Immature Granulocytes Absolute 0.53 #; Lymphocytes # 0.1 10*3/uL (1.4-4.0); Lymphocytes % 0.2 % (21.2-54.2); Mean Corpuscular HGB Conc 32.1 GM/DL (32-36); Mean Corpuscular Volume 79.3 FL (87-102); Mean Platelet Volume 10.1 FL (9.6-12.0); Monocytes % 3.3 % (1.7-12.7); Neutrophils % 94.5 % (38.7-73.9); Platelet Count 465 T/CUMM (130-400); Red Blood Count 3.34 MC/CUMM (3.8-5.5); Red Cell Distribution Width 20.3 % (9.3-17.3); White Blood Count 27.5 T/CUMM (4-12)
[2019-04-30 06:58] LABS: Albumin 2.2 G/DL (3.4-5.0); Bilirubin,Total 0.8 MG/DL (0.2-1.0); Calcium 8.3 MG/DL (8.5-10.1); Osmolality,Calculated 276.4 MOS/KG (273-304); Total Protein 5.4 G/DL (6.4-8.3)
[2019-04-30 07:06] LABS: Hypochromasia 1+; Ovalocytes Slight; Platelet Estimate Adequate; Segmented Neutrophils 96 % (50-85); Total Cells Counted 100
[2019-04-30] MEDS: PROCHLORPERAZINE 10 MG TABLET PO PRN (09:12)
[2019-04-30] MEDS: EPLERENONE 25 MG TABLET PO SCH (10:13)
[2019-04-30] MEDS: ASCORBIC ACID 500 MG TABLET PO SCH ×2 (10:14→21:33)
[2019-04-30] MEDS: PANTOPRAZOLE 40 MG VIAL IV SCH ×2 (10:18→21:30)
[2019-04-30] MEDS: DILTIAZEM 60 MG TABLET PO SCH ×3 (10:19→21:34)
[2019-04-30] MEDS: FLUOCINONIDE E 0.05% CREAM 15 GM TUBE TOP SCH ×4 (10:19→21:34)
[2019-04-30] MEDS: ASPIRIN EC 81 MG TABLET PO SCH (10:20)
[2019-04-30] MEDS: LEVOFLOXACIN INJ 750 MG in PREMIX 1 EACH IV SCH (10:20)
[2019-04-30] MEDS: LACTATED RINGERS 1,000 ML IV SCH (11:48)
[2019-04-30 18:24] LABS: Amorphous Crystals,Urine Occasional /HPF (Few); Apearance,Urine CLOUDY (Clear); Bacteria,Urine Few /HPF (Few); Bilirubin,Urine Negative (Negative); Blood, Urine Small mg/dL (Negative); Glucose,Urine (UA) Negative (Negative); Hyaline Casts,Urine 3 /LPF (0-3); Ketones,Urine Negative (Negative); Mucus,Urine Occasional /LPF (Occasional); Nitrite,Urine Negative (Negative); Protein,Urine Negative; RBC,Urine 2 /HPF (0-4); Squamous Epithelial Cell,Urine Occasional /HPF (0-10); Urine Color Yellow (Yellow); Urine Specific Gravity 1.024 (1.001-1.035); Urine Urobilinogen < 2.0 EU/DL (0.2-1.0); WBC,Urine <1 /HPF (0-6)
[2019-05-01] MEDS: ALBUTEROL/IPRATROPIUM 3 ML NEB RESP TX SCH ×7 (00:22→23:43)
[2019-05-01] MEDS: MEROPENEM 500 MG in SODIUM CHLORIDE 0.9% 100 ML IV SCH ×3 (04:09→17:01)
[2019-05-01 04:10] LABS: Basophils % 0.1 % (0.0-0.8); Hematocrit 26.3 VOL% (42.0-52.0); Hemoglobin 8.3 GM/DL (14.0-18.0); Immature Granulocytes % 1.6 %; Immature Granulocytes Absolute 0.38 #; Lymphocytes % 0.2 % (21.2-54.2); Mean Corpuscular HGB Conc 31.6 GM/DL (32-36); Mean Corpuscular Volume 80.2 FL (87-102); Mean Platelet Volume 9.6 FL (9.6-12.0); Monocytes % 2.8 % (1.7-12.7); Neutrophils % 95.3 % (38.7-73.9); Platelet Count 417 T/CUMM (130-400); Red Blood Count 3.28 MC/CUMM (3.8-5.5); Red Cell Distribution Width 20.3 % (9.3-17.3); White Blood Count 23.7 T/CUMM (4-12)
[2019-05-01 04:29] LABS: Hypochromasia 1+; Platelet Estimate Adequate; Segmented Neutrophils 96 % (50-85); Total Cells Counted 100
[2019-05-01 04:38] LABS: Albumin 2.1 G/DL (3.4-5.0); Bilirubin,Total 0.5 MG/DL (0.2-1.0); Calcium 8.3 MG/DL (8.5-10.1); Osmolality,Calculated 274.6 MOS/KG (273-304); Total Protein 5.3 G/DL (6.4-8.3)
[2019-05-01] MEDS: VANCOMYCIN INJ 1,000 MG in SODIUM CHLORIDE 0.9% 250 ML IV SCH (05:26)
[2019-05-01] MEDS: METOCLOPRAMIDE 10 MG/2 ML VIAL IV SCH ×3 (05:32→17:05)
[2019-05-01] MEDS: methylPREDNISolone SOD SUC 40 MG/1 ML VIAL IV SCH ×2 (05:34→17:02)
[2019-05-01] MEDS: PANTOPRAZOLE 40 MG VIAL IV SCH ×2 (10:12→21:48)
[2019-05-01] MEDS: EPLERENONE 25 MG TABLET PO SCH (10:13)
[2019-05-01] MEDS: ASPIRIN EC 81 MG TABLET PO SCH (10:13)
[2019-05-01] MEDS: ASCORBIC ACID 500 MG TABLET PO SCH ×2 (10:13→21:47)
[2019-05-01] MEDS: DILTIAZEM 60 MG TABLET PO SCH ×3 (10:13→21:47)
[2019-05-01] MEDS: FLUOCINONIDE E 0.05% CREAM 15 GM TUBE TOP SCH ×4 (10:24→23:59)
[2019-05-01] MEDS: LACTATED RINGERS 1,000 ML IV SCH ×2 (10:30→10:51)
[2019-05-01] MEDS: DIGOXIN 0.5 MG/2 ML AMP IV SCH (12:39)
[2019-05-01] MEDS: AZITHROMYCIN INJ 250 MG in SODIUM CHLORIDE 0.9% 250 ML IV SCH (12:40)
[2019-05-01] MEDS: HYDROmorphone 2 MG/1 ML VIAL IV PRN (12:48)
[2019-05-01] MEDS ORDERED: FUROSEMIDE 40 MG/4 ML VIAL IV ONE (14:09)
[2019-05-01] MEDS: FUROSEMIDE 40 MG/4 ML VIAL IV SCH (15:54)
[2019-05-01] MEDS ORDERED: diphenhydrAMINE CAP 50 MG CAPSULE PO ONE (20:06)
[2019-05-02] MEDS: METOCLOPRAMIDE 10 MG/2 ML VIAL IV SCH ×4 (00:06→19:39)
[2019-05-02] MEDS: MEROPENEM 500 MG in SODIUM CHLORIDE 0.9% 100 ML IV SCH ×4 (00:08→16:45)
[2019-05-02] MEDS: HYDROmorphone 2 MG/1 ML VIAL IV PRN ×3 (02:12→17:04)
[2019-05-02] MEDS: ALBUTEROL/IPRATROPIUM 3 ML NEB RESP TX SCH ×6 (03:14→23:00)
[2019-05-02] MEDS: methylPREDNISolone SOD SUC 40 MG/1 ML VIAL IV SCH ×2 (05:08→16:45)
[2019-05-02 06:05] LABS: Albumin 2.3 G/DL (3.4-5.0); Bilirubin,Total 1.2 MG/DL (0.2-1.0); Calcium 8.4 MG/DL (8.5-10.1); Osmolality,Calculated 276.8 MOS/KG (273-304); Total Protein 5.3 G/DL (6.4-8.3)
[2019-05-02] MEDS: LACTATED RINGERS 1,000 ML IV SCH (08:09)
[2019-05-02] MEDS: PANTOPRAZOLE 40 MG VIAL IV SCH ×2 (08:28→21:55)
[2019-05-02] MEDS: FUROSEMIDE 40 MG/4 ML VIAL IV SCH ×2 (08:28→16:44)
[2019-05-02] MEDS: AZITHROMYCIN INJ 250 MG in SODIUM CHLORIDE 0.9% 250 ML IV SCH (14:31)
[2019-05-02] MEDS: DILTIAZEM 60 MG TABLET PO SCH ×4 (15:57→21:55)
[2019-05-02] MEDS: ASPIRIN EC 81 MG TABLET PO SCH (15:57)
[2019-05-02] MEDS: EPLERENONE 25 MG TABLET PO SCH (15:58)
[2019-05-02] MEDS: FLUOCINONIDE E 0.05% CREAM 15 GM TUBE TOP SCH ×3 (15:59→21:58)
[2019-05-02] MEDS: ASCORBIC ACID 500 MG TABLET PO SCH ×3 (15:59→21:55)
[2019-05-03] MEDS: HYDROmorphone 2 MG/1 ML VIAL IV PRN ×3 (00:19→22:46)
[2019-05-03] MEDS: METOCLOPRAMIDE 10 MG/2 ML VIAL IV SCH ×4 (00:32→17:10)
[2019-05-03] MEDS: ALBUTEROL/IPRATROPIUM 3 ML NEB RESP TX SCH ×5 (03:30→19:27)
[2019-05-03 05:36] LABS: Basophils % 0.1 % (0.0-0.8); Hematocrit 25.2 VOL% (42.0-52.0); Immature Granulocytes % 1.5 %; Immature Granulocytes Absolute 0.33 #; Lymphocytes # 0.1 10*3/uL (1.4-4.0); Lymphocytes % 0.2 % (21.2-54.2); Mean Corpuscular HGB Conc 31.7 GM/DL (32-36); Mean Platelet Volume 9.7 FL (9.6-12.0); Monocytes % 2.9 % (1.7-12.7); Neutrophils % 95.3 % (38.7-73.9); Platelet Count 276 T/CUMM (130-400); Red Blood Count 3.23 MC/CUMM (3.8-5.5); Red Cell Distribution Width 21.1 % (9.3-17.3); White Blood Count 22.4 T/CUMM (4-12)
[2019-05-03 06:08] LABS: Segmented Neutrophils 96 % (50-85); Total Cells Counted 100
[2019-05-03 06:09] LABS: Hypochromasia 2+; Platelet Estimate Adequate
[2019-05-03] MEDS: methylPREDNISolone SOD SUC 40 MG/1 ML VIAL IV SCH ×2 (06:55→17:15)
[2019-05-03 07:43] LABS: Albumin 2.1 G/DL (3.4-5.0); Bilirubin,Total 0.6 MG/DL (0.2-1.0); Calcium 7.8 MG/DL (8.5-10.1); Osmolality,Calculated 285.4 MOS/KG (273-304); Total Protein 4.4 G/DL (6.4-8.3)
[2019-05-03] MEDS: MEROPENEM 500 MG in SODIUM CHLORIDE 0.9% 100 ML IV SCH ×2 (09:35→17:13)
[2019-05-03] MEDS: PANTOPRAZOLE 40 MG VIAL IV SCH ×2 (12:17→22:03)
[2019-05-03] MEDS: AZITHROMYCIN INJ 250 MG in SODIUM CHLORIDE 0.9% 250 ML IV SCH (12:26)
[2019-05-03] MEDS: FUROSEMIDE 40 MG/4 ML VIAL IV SCH ×2 (12:38→15:20)
[2019-05-03] MEDS: FLUOCINONIDE E 0.05% CREAM 15 GM TUBE TOP SCH ×4 (12:41→22:04)
[2019-05-03] MEDS: EPLERENONE 25 MG TABLET PO SCH (12:41)
[2019-05-03] MEDS: ASCORBIC ACID 500 MG TABLET PO SCH ×2 (12:42→22:03)
[2019-05-03] MEDS: DILTIAZEM 60 MG TABLET PO SCH ×3 (12:42→22:03)
[2019-05-03] MEDS: ASPIRIN EC 81 MG TABLET PO SCH (12:42)
[2019-05-03] MEDS: DIGOXIN 0.5 MG/2 ML AMP IV SCH (15:07)
[2019-05-03] MEDS ORDERED: CLORAZEPATE 3.75 MG TABLET PO PRN (15:10)
[2019-05-03] MEDS ORDERED: DEXTROSE 10% 250 ML BAG IV PRN (17:00)
[2019-05-03] MEDS ORDERED: GLUCAGON 1 MG VIAL IM PRN (17:00)
[2019-05-03] MEDS: LACTATED RINGERS 1,000 ML IV SCH (17:17)
[2019-05-04] MEDS: ALBUTEROL/IPRATROPIUM 3 ML NEB RESP TX SCH ×7 (00:34→23:45)
[2019-05-04] MEDS: MEROPENEM 500 MG in SODIUM CHLORIDE 0.9% 100 ML IV SCH ×7 (01:30→23:40)
[2019-05-04] MEDS: METOCLOPRAMIDE 10 MG/2 ML VIAL IV SCH ×4 (01:33→18:47)
[2019-05-04] MEDS: LACTATED RINGERS 1,000 ML IV SCH ×2 (01:37→15:58)
[2019-05-04] MEDS: methylPREDNISolone SOD SUC 40 MG/1 ML VIAL IV SCH ×2 (06:20→18:44)
[2019-05-04 06:44] LABS: Albumin 1.9 G/DL (3.4-5.0); Bilirubin,Total 1.4 MG/DL (0.2-1.0); Calcium 8.3 MG/DL (8.5-10.1); Osmolality,Calculated 290.9 MOS/KG (273-304); Total Protein 4.6 G/DL (6.4-8.3)
[2019-05-04] MEDS: FUROSEMIDE 40 MG/4 ML VIAL IV SCH ×2 (10:05→15:39)
[2019-05-04] MEDS: EPLERENONE 25 MG TABLET PO SCH (10:07)
[2019-05-04] MEDS: ASCORBIC ACID 500 MG TABLET PO SCH ×2 (10:07→21:19)
[2019-05-04] MEDS: DILTIAZEM 60 MG TABLET PO SCH ×3 (10:07→21:19)
[2019-05-04] MEDS: ASPIRIN EC 81 MG TABLET PO SCH (10:07)
[2019-05-04] MEDS: FLUOCINONIDE E 0.05% CREAM 15 GM TUBE TOP SCH ×4 (10:07→21:19)
[2019-05-04] MEDS: PANTOPRAZOLE 40 MG VIAL IV SCH ×2 (10:08→21:19)
[2019-05-04] MEDS: AZITHROMYCIN INJ 250 MG in SODIUM CHLORIDE 0.9% 250 ML IV SCH (10:09)
[2019-05-04] MEDS: HYDROmorphone 2 MG/1 ML VIAL IV PRN ×2 (12:26→15:43)
[2019-05-04] MEDS ORDERED: SODIUM CHLORIDE 0.9% 1,000 ML IV PRN ×2 (16:34→19:42)
[2019-05-04] MEDS ORDERED: FUROSEMIDE 20 MG/2 ML VIAL IV ONE (16:36)
[2019-05-05] MEDS: METOCLOPRAMIDE 10 MG/2 ML VIAL IV SCH ×4 (00:34→17:15)
[2019-05-05] MEDS: ALBUTEROL/IPRATROPIUM 3 ML NEB RESP TX SCH ×5 (02:15→19:19)
[2019-05-05] MEDS: MEROPENEM 500 MG in SODIUM CHLORIDE 0.9% 100 ML IV SCH ×3 (05:10→17:19)
[2019-05-05] MEDS: methylPREDNISolone SOD SUC 40 MG/1 ML VIAL IV SCH ×2 (05:10→17:18)
[2019-05-05 06:55] LABS: Basophils % 0.1 % (0.0-0.8); Hematocrit 30.2 VOL% (42.0-52.0); Hemoglobin 9.7 GM/DL (14.0-18.0); Immature Granulocytes % 1.2 %; Immature Granulocytes Absolute 0.28 #; Lymphocytes % 0.2 % (21.2-54.2); Mean Corpuscular HGB Conc 32.1 GM/DL (32-36); Mean Corpuscular Volume 80.5 FL (87-102); Mean Platelet Volume 10.4 FL (9.6-12.0); Monocytes % 2.5 % (1.7-12.7); Platelet Count 194 T/CUMM (130-400); Red Blood Count 3.75 MC/CUMM (3.8-5.5); Red Cell Distribution Width 20.2 % (9.3-17.3); White Blood Count 23.3 T/CUMM (4-12)
[2019-05-05 07:18] LABS: Albumin 1.7 G/DL (3.4-5.0); Bilirubin,Total 0.7 MG/DL (0.2-1.0); Calcium 7.9 MG/DL (8.5-10.1); Osmolality,Calculated 289.1 MOS/KG (273-304); Total Protein 4.5 G/DL (6.4-8.3)
[2019-05-05 07:27] LABS: Anisocytosis 1+; Hypochromasia 1+; Lymphocytes 1 % (20-55); Microcytosis 1+; Segmented Neutrophils 95 % (50-85); Target Cells Slight; Total Cells Counted 100
[2019-05-05 07:28] LABS: Ovalocytes Slight; Platelet Estimate Adequate
[2019-05-05] MEDS: FUROSEMIDE 40 MG/4 ML VIAL IV SCH ×2 (09:42→17:16)
[2019-05-05] MEDS: PANTOPRAZOLE 40 MG VIAL IV SCH (09:43)
[2019-05-05] MEDS: EPLERENONE 25 MG TABLET PO SCH (09:44)
[2019-05-05] MEDS: FLUOCINONIDE E 0.05% CREAM 15 GM TUBE TOP SCH ×4 (09:45→21:11)
[2019-05-05] MEDS: ASPIRIN EC 81 MG TABLET PO SCH (09:45)
[2019-05-05] MEDS: ASCORBIC ACID 500 MG TABLET PO SCH (09:45)
[2019-05-05] MEDS: DILTIAZEM 60 MG TABLET PO SCH ×2 (09:45→14:31)
[2019-05-05] MEDS: AZITHROMYCIN INJ 250 MG in SODIUM CHLORIDE 0.9% 250 ML IV SCH (09:54)
[2019-05-05] MEDS ORDERED: fentaNYL 25 MCG/HR PATCH TRANSDERM SCH (12:30)
[2019-05-05] MEDS: DIGOXIN 0.5 MG/2 ML AMP IV SCH (12:54)
[2019-05-05] MEDS: ACETAMINOPHEN 325 MG TABLET PO PRN (12:59)
[2019-05-05 13:48] VITALS: BP 113/67
[2019-05-05] MEDS ORDERED: ONDANSETRON 4 MG/2 ML VIAL IV PRN (17:02)
[2019-05-05] MEDS: HYDROmorphone 2 MG/1 ML VIAL IV PRN (17:14)
[2019-05-06] MEDS: ALBUTEROL/IPRATROPIUM 3 ML NEB RESP TX SCH ×6 (00:09→20:12)
[2019-05-06] MEDS: HYDROmorphone 2 MG/1 ML VIAL IV PRN ×3 (01:48→16:07)
[2019-05-06] MEDS: FLUOCINONIDE E 0.05% CREAM 15 GM TUBE TOP SCH ×4 (09:05→20:10)
[2019-05-06] MEDS: LORazepam 2 MG/1 ML VIAL IV PRN (18:29)
[2019-05-07] MEDS: ALBUTEROL/IPRATROPIUM 3 ML NEB RESP TX SCH ×6 (01:43→19:55)
[2019-05-07] MEDS: FLUOCINONIDE E 0.05% CREAM 15 GM TUBE TOP SCH ×4 (09:00→20:18)
[2019-05-07] MEDS: HYDROmorphone 2 MG/1 ML VIAL IV PRN ×3 (09:21→20:15)
[2019-05-08] MEDS: ALBUTEROL/IPRATROPIUM 3 ML NEB RESP TX SCH ×4 (01:10→11:25)
[2019-05-08] MEDS: LORazepam 2 MG/1 ML VIAL IV PRN ×2 (03:36→08:46)
[2019-05-08] MEDS: FLUOCINONIDE E 0.05% CREAM 15 GM TUBE TOP SCH ×2 (09:25→14:41)
[2019-05-08] MEDS ORDERED: MORPHINE 4 MG/1 ML VIAL IV PRN ×2 (09:25→16:24)
[2019-05-08] MEDS ORDERED: fentaNYL 25 MCG/HR PATCH TRANSDERM SCH (10:00)
== END 2019-05-08 17:12 | disposition hospice, inpatient (51) | DRG 388 ==
LOC: N.ED 08:27 → SUATTDRO 11:13 → N.EDINP 11:13 → N.3E 12:42 → N.CC 04-12 10:49 → N.TELES 04-13 12:28 → N.ICU 04-16 12:00 → N.5E 04-18 11:39
PROVIDERS: ADMIT Internal Medicine; ATTEND Internal Medicine
PROC: EGDWPEG (ICD-10-PCS; 2019-04-16 07:00)
PROC: IRTHORA (2019-05-02 14:45)

== ENCOUNTER 2019-05-08 16:22 | Inpatient (IN) ==
[2019-05-08] MEDS ORDERED: LORazepam 2 MG/1 ML VIAL IV PRN (16:48)
[2019-05-08] MEDS ORDERED: MORPHINE 4 MG/1 ML VIAL IV PRN (17:56)
[2019-05-08] MEDS ORDERED: SCOPOLAMINE 1.5 MG PATCH TRANSDERM SCH (18:00)
[2019-05-08] MEDS: LORazepam 2 MG/1 ML VIAL IV PRN (18:37)
[2019-05-09] MEDS: LORazepam 2 MG/1 ML VIAL IV PRN ×2 (04:40→08:10)
[2019-05-11] MEDS ORDERED: fentaNYL 25 MCG/HR PATCH TRANSDERM SCH (09:00)
== END 2019-05-09 13:02 | disposition expired | DRG 951 ==
LOC: N.4E 16:22
PROVIDERS: ADMIT Internal Medicine; ATTEND Internal Medicine